=== PATIENT | male | born 1995 | race Caucasian/White ===

== ENCOUNTER 2020-11-08 17:27 | Emergency (ER) | payer BC ==
[2020-11-08] MEDS ORDERED: Sodium Chloride 0.9% 1,000 ML IV ONE (18:36)
[2020-11-08] MEDS ORDERED: Sodium Chloride 0.9% 2.5 ML Syringe FLUSH PRN (18:37)
[2020-11-08] MEDS ORDERED: Sodium Chloride 0.9% 10 ML Syringe FLUSH PRN (18:37)
--- NOTE | 2020-11-08 18:39 | EDM.PDOC ---
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 He got to the point where he lost control of his muscles and felt like he could not walk. He almost passed out or may have actually briefly passed out. He replaced with 1 Gatorade and rest with great amounts of water. The patient is non-smoker and not diabetic or hypertensive. He is not treated for cholesterol. He has no family history of stroke or heart attack. At one point the patient felt numb in his fingers and could not move them at 1 point he felt numb in his legs and could not move them and throughout the entire episode he felt like he had numbness around his lips. He was diaphoretic. Patient and said he had a heart attack when he is 10 years old. It turns out he had a history of supraventricular tachycardia or some such tachycardia and he had taken an energy drink. At that time he had an ablation attempt that did not work and then he did a deeper ablation in the lower part of his heart. Patient says he had a heart attack when he was 10. It turns out he had an arrhythmia which was a tacky arrhythmia and he had taken an energy drink. He had an ablation attempt but that did not work and then he had a deeper ablation in the lower part of his heart. He has had some intermittent trouble with tachycardia since then and work-ups and the outpatient monitors have been negative. [] Review of systems: As per history of present illness and below otherwise all systems reviewed and negative. Past medical history: As per history of present illness and as reviewed below otherwise noncontributory. Surgical history: As per history of present illness and as reviewed below otherwise noncontributory. Social history: No reported history of drug or alcohol abuse. Family history: As per history of present illness and as reviewed below otherwise noncontributory. Physical exam: Constitutional - well developed, well-nourished and in no acute distress HEENT - normocephalic, no evidence of trauma - external nose and mouth normal - no mass in neck and no JVD - mucosae moist EYES - full EOM, PERRL, no icterus - no evidence of inflammation, injection, or drainage Respiratory - no respiratory distress, equal bilateral expansion, lungs clear to auscultation and no abnormal lung sounds Cardiovascular - Regular Rhythm with S1 and S2 appreciated and no murmur, gallop or rub. GI - abdomen soft without distension or organomegaly - normal bowel sounds - no guard or rebound Musculoskeletal no gross deformity of long bones or joints - no tenderness, swelling or edema Neurologic - Alert and oriented times four - CN II-XII grossly intact - motor sensory and coordination symmetrically normal Psychiatric - appropriate mood and affect with normal thought content Hematologic - No petechiae or purpura - mucosa appropriate color and sclera not pale - normal nail bed color and refill Integument - no rash or evidence of trauma - normal turgor Diagnostics: [] Therapeutics: [] Impression: [] Plan: [] Definitive disposition and diagnosis as appropriate pending reevaluation and review of above. - Related Data Allergies Allergy/AdvReac Type Severity Reaction Status Date / Time No Known Allergies Allergy Verified 11/08/20 17:38 Home Meds: Home Meds . [No Known Home Meds] 11/08/20 [History] Past Medical History Cardiovascular History: Reports: Other (See Below) - Infectious Disease History Infectious Disease History: Reports: Chicken Pox - Past Surgical History Other Cardiovascular Surgeries/Procedures: States he had sudden dealth at age 10, Had heart surgery to repair a nerve. Social & Family History - Tobacco Use Tobacco Use Status *Q: Never Tobacco User - Caffeine Use Caffeine Use: Reports: Soda - Recreational Drug Use Recreational Drug Use: No ED ROS GENERAL - Review of Systems Review Of Systems: Comprehensive ROS is negative, except as noted in HPI. ED EXAM, GENERAL - Physical Exam Exam: See Below Free Text/Narrative:: My physical exam is in the HPI Departure - Departure Disposition: Home, Self-Care 01 Clinical Impression: Paresthesia - Discharge Information Instructions: Dehydration, Adult, Sbex-[id number], Paresthesia, Sdbj-xs-Ictu, Syncope, Cvoo-ye-Ohgv Referrals: PCP,None [Primary Care Provider] - Slick Butler MD [Physician] - Forms: ED Department Discharge Additional Instructions: You were evaluated today on an emergent basis. At this time all of your work-up was normal except for some low magnesium. Given your history of the ablation when you are 10 years old I do want you to follow-up with cardiology as soon as possible for reevaluation. If you have any recurrence of the symptoms I would like you to return immediately to the emergency department including chest pain, numbness, feeling like you are going to pass out or shortness of breath. Given that it improved after some fluid administration dehydration is also on the radar. I do recommend that you continue to keep hydrated while at work. If you have any worsening symptoms please return to the emergency department. Please follow-up with your primary care physician at the number below within the next [place]. [facility] [address] [place], [place] [id number] [place] [address] The patient is informed of any results of their evaluation and diagnostic workup and all questions are answered. They are given discharge instructions and return precautions. The patient is stable for discharge. The patient states they understand and agree with the plan and that they will return if their symptoms get worse or if they have any new concerns. The following information is given to patients seen in the emergency department who are being discharged to home. This information is to outline your options for follow-up care. We provide all patients seen in our emergency department with a follow-up referral. The need for follow-up, as well as the timing and circumstances, are variable de pending upon the specifics of your emergency department visit. If you don't have a primary care physician on staff, we will provide you with a referral. We always advise you to contact your personal physician following an emergency department visit to inform them of the circumstance of the visit and for follow-up with them and/or the need for any referrals to a consulting specialist. The emergency department will also refer you to a specialist when appropriate. This referral assures that you have the opportunity for follow-up care with a specialist. All of these measure are taken in an effort to provide you with optimal care, which includes your follow-up. Under all circumstances we always encourage you to contact your private physician who remains a resource for coordinating your care. When calling for follow-up care, please make the office aware that this follow-up is from your recent emergency room visit. If for any reason you are refused follow-up, please contact the [facility] Emergency Department at and asked to speak to the emergency department charge nurse. Sepsis Event Note (ED) - Evaluation Sepsis Screening Result: No Definite Risk <Colin Mcgarry - Last Filed: 11/09/20 06:44> ED HPI GENERAL MEDICAL PROBLEM - History of Present Illness INITIAL COMMENTS - FREE TEXT/NARRATIVE: Patient was signed out to me by Dr. Nelson pending labs and reevaluation at 7PM I did reevaluate the patient and patient was sitting comfortably at bedside. I did obtain repeat history and his episode that happened at 10 AM was similar to what prior physician had included in his HPI. I did asked the patient regarding his "ablation." When he was younger and he stated that they told him it was the "sudden rhythm." He states that he is the only person in his family to have this and there is no known family history of this. They told him that because his heart rate was at 300 for 3 days he was ten to have lived. He states that they did an ablation on the lower part of his heart. He does not remember if it was a myomectomy or there was anything else. At this time he did contact his mother and they again did not know the exact name of this rhythm. I did review the multiple rhythms including Xpcww-Ouqupunie-Tdyek, arrhythmogenic right ventricular dysplasia, Brugada, hypertrophic cardiomyopathy and none of these seem to be the rhythms that they had discussed with him. The patient is currently asymptomatic. He states that when he had his symptoms when he was 10 years old he had chest pain with them and he did develop numbness around his lips and his hands similar to today. He states that today was different because he did not have any chest pain. EKG that was obtained did not reveal any evidence of Brugada, Xohyv-Lmchqztnd-Ncdfd, hypertrophic cardiomyopathy, or arrhythmogenic right ventricular dysplasia. There was no widened QRS, peaked T waves or evidence of ischemia. Laboratory: CBC reveals a leukocytosis of 12.59 otherwise unremarkable. D-dimer is negative. CMP reveals hypocalcemia at 8.4, hypomagnesemia at 1.7. Troponin was negative. After labs had returned I did replete the patient's magnesium with 2 g of IV magnesium. The radiological images were viewed by myself along with reading the report from the radiologist. Chest x-ray does not reveal any acute cardiopulmonary process. At this time there does not need to be an additional troponin as the symptom onset was greater than 4 hours prior to arrival. I did discuss with the patient that given his history of this "sudden arrhythmia." And given his symptoms today I did offer observation admission. He states that given that it is not similar to when he was 10 years old he does not believe that this is secondary to his heart. He states that he feels safe going home. 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 Therefore, at this time I did perform a bedside ultrasound to evaluate for septal hypertrophy. Bedside cardiac ultrasound revealed septal measurements of 1.44 cm and 1.31 cm which is below the cutoff for septal hypertrophy as seen in hypertrophic cardiomyopathy. There was no evidence of wall motion abnormalities. Ejection fraction appeared to be normal around 55 to 60%. There was no pericardial effusion. The patient was currently asymptomatic on my reevaluation and radiation monitor did reveal sinus rhythm and pulse oximetry with good waveform was 98% on room air. At this time I did discuss strict return precautions with the patient. I discussed that I would like him to follow-up with primary care physician in 1 to 3 days in addition to cardiology in 1 to 3 days. He was amenable to discharge at this time and had no further questions. DISPOSITION: The patient was discharged home in stable condition. The patient will follow up with primary care physician and cardiology in 1 to 3 days CONDITION: Fair PROCEDURES: Cardiac monitoring interpretation, pulse oximetry interpretation, bedside cardiac ultrasound FINAL IMPRESSION(S)/DIAGNOSES: 1. Acute paresthesias 2. Acute presyncope Colin Mcgarry M.D. ED [facility] GENERAL - Review of Systems Review Of Systems: See Below Course - Vital Signs Last Recorded V/S: Last Vital Signs Temp 36.8 C 11/08/20 17:38 Pulse 87 11/08/20 21:43 Resp 16 11/08/20 21:43 BP 134/67 07/13/21 21:43 Pulse Ox 98 11/08/20 21:43 - Orders/Labs/Meds Orders: Active Orders 24 hr Category Date Time Status Saline Lock Insert [OM.PC] Stat Oth 11/08/20 18:37 Ordered Labs: Laboratory Tests 11/08/20 11/08/20 11/08/20 Range/Units 19:15 19:15 19:15 WBC 12.59 H (4.0-11.0) K/uL RBC 4.86 (4.50-5.90) M/uL Hgb 14.7 (13.0-17.0) g/dL Hct 42.6 (38.0-50.0) % MCV 87.7 (80.0-98.0) fL MCH 30.2 (27.0-32.0) pg MCHC 34.5 (31.0-37.0) g/dL RDW Std Deviation 41.4 (28.0-62.0) fl RDW Coeff of Josefa 13 (11.0-15.0) % Plt Count 192 (150-400) K/uL MPV 10.70 (7.40-12.00) fL Neut % (Auto) 82.4 H (48.0-80.0) % Lymph % (Auto) 9.5 L (16.0-40.0) % [place] % (Auto) 7.3 (0.0-15.0) % Eos % (Auto) 0.6 (0.0-7.0) % Baso % (Auto) 0.2 (0.0-1.5) % Neut # (Auto) 10.4 H (1.4-5.7) K/uL Lymph # (Auto) 1.2 (0.6-2.4) K/uL [place] # (Auto) 0.9 H (0.0-0.8) K/uL Eos # (Auto) 0.1 (0.0-0.7) K/uL Baso # (Auto) 0.0 (0.0-0.1) K/uL Nucleated RBC % 0.0 /100WBC Nucleated RBCs # 0 K/uL D-Dimer, Quantitative (0.0-0.50) mg/L FEU Sodium 141 (136-148) mmol/L Potassium 3.7 (3.5-5.1) mmol/L Chloride 104 (98-107) mmol/L Carbon Dioxide 26.6 (21.0-32.0) mmol/L BUN 10 (7.0-18.0) mg/dL Creatinine 1.0 (0.8-1.3) mg/dL Est Cr Clr Drug Dosing 133.79 mL/min Estimated GFR (MDRD) > 60.0 ml/min Glucose 105 (74-106) mg/dL Calcium 8.4 L (8.5-10.1) mg/dL Magnesium 1.7 L (1.8-2.4) mg/dL Total Bilirubin 0.8 (0.2-1.0) mg/dL AST 20 (15-37) IU/L ALT 37 (14-63) IU/L Alkaline Phosphatase 115 (46-116) U/L Troponin I < 0.050 (0.000-0.056) ng/mL Total Protein 7.4 (6.4-8.2) g/dL Albumin 3.9 (3.4-5.0) g/dL Globulin 3.5 (2.6-4.0) g/dL Albumin/Globulin Ratio 1.1 (0.9-1.6) 11/08/20 Range/Units 19:15 WBC (4.0-11.0) K/uL RBC (4.50-5.90) M/uL Hgb (13.0-17.0) g/dL Hct (38.0-50.0) % MCV (80.0-98.0) fL MCH (27.0-32.0) pg MCHC (31.0-37.0) g/dL RDW Std Deviation (28.0-62.0) fl RDW Coeff of Josefa (11.0-15.0) % Plt Count (150-400) K/uL MPV (7.40-12.00) fL Neut % (Auto) (48.0-80.0) % Lymph % (Auto) (16.0-40.0) % [place] % (Auto) (0.0-15.0) % Eos % (Auto) (0.0-7.0) % Baso % (Auto) (0.0-1.5) % Neut # (Auto) (1.4-5.7) K/uL Lymph # (Auto) (0.6-2.4) K/uL [place] # (Auto) (0.0-0.8) K/uL Eos # (Auto) (0.0-0.7) K/uL Baso # (Auto) (0.0-0.1) K/uL Nucleated RBC % /100WBC Nucleated RBCs # K/uL D-Dimer, Quantitative < 0.19 (0.0-0.50) mg/L FEU Sodium (136-148) mmol/L Potassium (3.5-5.1) mmol/L Chloride (98-107) mmol/L Carbon Dioxide (21.0-32.0) mmol/L BUN (7.0-18.0) mg/dL Creatinine (0.8-1.3) mg/dL Est Cr Clr Drug Dosing mL/min Estimated GFR (MDRD) ml/min Glucose (74-106) mg/dL Calcium (8.5-10.1) mg/dL Magnesium (1.8-2.4) mg/dL Total Bilirubin (0.2-1.0) mg/dL AST (15-37) IU/L ALT (14-63) IU/L Alkaline Phosphatase (46-116) U/L Troponin I (0.000-0.056) ng/mL Total Protein (6.4-8.2) g/dL Albumin (3.4-5.0) g/dL Globulin (2.6-4.0) g/dL Albumin/Globulin Ratio (0.9-1.6) Meds: Medications Discontinued Medications Generic Name Dose Route Start Last Admin Trade Name Freq PRN Reason Stop Dose Admin Sodium Chloride 1,000 mls @ 1,000 mls/hr 11/08/20 18:36 11/08/20 19:35 Normal Saline IV 11/08/20 19:35 1,000 mls/hr .Bolus ONE Administration Magnesium Sulfate 2 gm/ Premix 50 mls @ 12.5 mls/hr 11/08/20 19:53 11/08/20 20:13 IV 11/08/20 23:52 12.5 mls/hr ONETIME ONE Administration Sodium Chloride 10 ml 11/08/20 18:37 11/08/20 19:34 Sodium Chloride 0.9% 10 Ml Syringe FLUSH 10 ml ASDIRECTED PRN Administration Keep Vein Open Sodium Chloride 2.5 ml 11/08/20 18:37 11/08/20 19:35 Sodium Chloride 0.9% 2.5 Ml Syringe FLUSH 2.5 ml ASDIRECTED PRN Administration Keep Vein Open Departure - Departure Time of Disposition: 21:50 Condition: Fair - Discharge Information *PRESCRIPTION DRUG MONITORING PROGRAM REVIEWED*: No *COPY OF PRESCRIPTION DRUG MONITORING REPORT IN PATIENT ROSAS: No Sepsis Event Note (ED) - Focused Exam Vital Signs: Vital Signs Pulse Resp BP Pulse Ox 11/08/20 21:43 87 16 134/67 98
[2020-11-08 19:52] LABS: BLOOD UREA NITROGEN,BUN 10 mg/dL (7.0-18.0); CARBON DIOXIDE,CO2 26.6 mmol/L (21.0-32.0); CHLORIDE,CL 104 mmol/L (98-107); GLUCOSE RANDOM 105 mg/dL (74-106); POTASSIUM,K 3.7 mmol/L (3.5-5.1); SODIUM,NA 141 mmol/L (136-148)
[2020-11-08] MEDS ORDERED: Magnesium Sulfate/Water 2 GM in Premix Bag 1 BAG IV ONE (19:53)
--- NOTE | 2020-11-08 20:01 | PCM.EKG ---
#1 Interpretation EKG Date: 11/08/20 Time: 19:26 Rhythm: NSR Rate (Beats/Min): 93 [place]: Normal P-Wave: Present QRS: Normal ST-T: Normal (T wave inversion in III, aVF. S1Q3T3) QT: Normal Comparison: NA - No Prior EKG EKG Interpretation Comments: Sinus Rhythm with S1Q3T3, no evidence of R. heart strain. No evidence to suggest HOCM, Brugada, or ARVD
--- NOTE | 2020-11-08 21:14 | CR ---
INDICATION: Chest discomfort TECHNIQUE: Chest radiograph 1 view COMPARISON: None FINDINGS: Cardiovascular and mediastinum: The heart silhouette is normal in size and morphology. The mediastinum is normal in appearance. Lungs and pleural spaces: Mild linear opacities in the left retrocardiac region and left costophrenic sulcus. No sign of pleural effusion seen. No pneumothorax is identified. Bones and soft tissues: No significant findings. IMPRESSION: 1. Mild degree of left basilar atelectasis and/or infiltrate. Otherwise negative chest. Dictated by Alonso Mattson MD @ 11/08/2020 9:13:[address] Alonso Mattson @ Nov 08 2020 9:13PM
== END 2020-11-08 21:58 | disposition home or self-care (01) ==
LOC: MW.ED 17:27
DX: R20.2 Paresthesia of skin (principal)
CPT/HCPCS: 36415; 71045; 80053; 83735; 84484; 85025; 85379; 96365; 99284; J3475; J7030